=== PATIENT | male | born 1980 | race Caucasian/White ===

== ENCOUNTER 2022-10-30 13:30 | Day surgery (SDC) | payer MEDICARE, MEDICAID, SELFPAY ==
[2022-10-30] VITALS (11 sets, daily range): BP systolic 124–149; BP diastolic 76–93; PULSE 56–68; RESP 13–19; TEMP 36.3–37; O2SAT 97–100
--- NOTE | 2022-10-30 14:03 | CRLHL7_ITS ---
For Patients: As a result of the Century Cures Act, medical imaging exams and procedure reports are released immediately into your electronic medical record. You may view this report before your referring provider. If you have questions, please contact your health care provider. INDICATION: Abdominal pain, rectal bleeding on and off x 1 month[address] TECHNIQUE: CT of the abdomen and pelvis with 74 cc Isovue 370 IV contrast. Coronal and sagittal reconstructions. COMPARISON: CT of the abdomen and pelvis 10/18/2018. FINDINGS: The liver, gallbladder, spleen, pancreas, and adrenal glands are negative. Splenule. No biliary dilation. Portal veins are patent. Symmetric enhancement of the kidneys. No hydronephrosis or ureteral dilation. No obstructing urinary calculi identified. The bladder is normal in appearance. Mildly enlarged prostate gland. No small bowel dilation. Mild to moderate amount of stool throughout the colon. The appendix is dilated and fluid-filled measuring up to 10 mm in diameter (series 2, image 110). No significant wall thickening or surrounding fat stranding. Findings may represent early/mild acute appendicitis. No intraperitoneal free air or fluid. No evidence of abscess. No lymphadenopathy. Mild vascular calcifications. Tiny fat containing umbilical hernia. Degenerative changes at L5-S1. The lung bases are clear. IMPRESSION: 1. Dilated fluid-filled appendix without surrounding inflammation. Findings may represent early/mild acute appendicitis. No evidence of perforation or abscess. 2. No other acute findings in the abdomen or pelvis. No findings to explain rectal bleeding. Please note that all CT scans at this facility use dose modulation, iterative reconstruction, and/or weight-based dosing when appropriate to reduce radiation dose to as low as reasonably achievable. Dictated by Sena Murphy MD @ 10/30/2022 3:20:36 PM (Electronically Signed)
--- NOTE | 2022-10-30 14:05 | ED_ITS ---
HPI - Abdominal Pain General Chief Complaint: Abdominal Pain Stated Complaint: Abdominal pain, rectal bleeding Time Seen by Provider: 10/30/22 13:42 History of Present Illness HPI narrative: This 42-year-old male comes in with rectal bleeding from hemorrhoids which she has had repeatedly in the past. He also has severe abdominal pain recently. 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 He does report some nausea and states that he has not been able to take any food for the past few days. He is under house arrest. Related Data Home Medications Medication Instructions Recorded Confirmed meloxicam 15 mg tablet 15 mg PO DAILY PRN pain 10/30/22 10/30/22 Allergies Allergy/AdvReac Type Severity Reaction Status Date / Time No Known Drug Allergies Allergy Verified 10/30/22 14:48 Review of Systems Status of ROS Reports: 10 or more systems reviewed and unremarkable except as noted in History and below Narrative Constitutional: No fevers, no weight gain or loss. Eyes: No discharge. No vision changes. HENT: No congestion, no sore throat, no ear pain. Cardiovascular: No chest pain, no palpitations. Respiratory: No shortness of breath, no wheezes, no cough. Gastrointestinal: Abdominal pain and nausea. Bright red blood per rectum. Genitourinary: No dysuria, no hematuria. Musculoskeletal: Normal range of motion. Skin: No rashes, no pruritis. Neurological: No dizziness, weakness, sensory change, speech change. Endo/Heme/Allergies: No bruising or bleeding. No polydipsia. Pysch: no suicidality, no anxiety, no insomnia. All other systems reviewed and are negative. [facility] Social History Smoking Status: Current every day smoker What tobacco products do you use: cigarettes Do you use any of these nicotine containing products: None Second hand tobacco smoke exposure: No How often do you have a drink containing alcohol: never AUDIT-C Alcohol total score: 0 Non-prescribed substance use: marijuana (any form) Exam Narrative: Exam Narrative: Constitutional: Well-developed, well-nourished, no acute distress. HEENT: Normocephalic, atraumatic. Neck: Normal range of motion. Nontender. Supple. Heart: Regular. No murmurs. Normal rate. Intact distal pulses. Lungs: Clear to auscultation. No chest discomfort. No wheezes, rhonchi, or rales. Abdomen: Normal bowel sounds. Diffuse tenderness mostly in the lower abdomen. No rebound tenderness. Genitalia: Deferred. Back: No midline tenderness. Normal range of motion. Extremities: Normal range of motion. No injury. Skin: Intact. No rash. Warm. No erythema or pallor. Neurologic: No altered sensation. No weakness. Alert and oriented. Psychiatric: No suicidality. No anxiety or depression. No insomnia. Nursing notes and vitals signs are reviewed. Const: Vital Signs, click to edit/add: Vital Signs - 24 hr 10/30/22 13:43 10/30/22 16:04 Temperature 97.9 F Pulse Rate 68 Pulse Rate [Right Pulse Oximeter] 60 Respiratory Rate 18 16 Blood Pressure 132/83 Blood Pressure [Ri ght Upper Arm] 124/84 Pulse Oximetry 99 97 Oxygen Delivery Me thod Room Air Course Vital Signs Vital signs: Initial Vital Signs Temperature 97.9 F 10/30/22 13:43 Temperature Source Temporal Artery Scan 10/30/22 13:43 Pulse Rate 60 10/30/22 13:43 Pulse Rhythm Regular 10/30/22 13:43 Pulse Strength 3+ Normal 10/30/22 13:43 Respiratory Rate 18 10/30/22 13:43 Blood Pressure 124/84 10/30/22 13:43 Blood Pressure Mean 97 10/30/22 13:43 Blood Pressure Position Sitting 10/30/22 13:43 Pulse Oximetry 99 10/30/22 13:43 Oxygen Delivery Method Room Air 10/30/22 13:43 Vital Signs Temperature 97.9 F 10/30/22 13:43 Pulse Rate 60 10/30/22 13:43 Respiratory Rate 18 10/30/22 13:43 Blood Pressure 124/84 10/30/22 13:43 Pulse Oximetry 99 10/30/22 13:43 Oxygen Delivery Method Room Air 10/30/22 13:43 Temperature 97.9 F 10/30/22 13:43 Pulse Rate 68 10/30/22 16:04 Respiratory Rate 16 10/30/22 16:04 Blood Pressure 132/83 10/30/22 16:04 Pulse Oximetry 97 10/30/22 16:04 Oxygen Delivery Method Room Air 10/30/22 13:43 MDM - Abdominal Pain MDM Narrative Medical decision making narrative: This patient comes in reporting severe lower abdominal pain. He has recurrent rectal bleeding that he attributes to hemorrhoids. His reason for visit today is primarily the abdominal pain. He does have follow-up appointment regarding the hemorrhoids. An IV was established and labs are acquired. These returned normal. CT imaging of the abdomen and pelvis however does show suspicion of early to mild appendicitis. I did speak with the surgeon on-call who will arrange for appendectomy today. Lab Data Labs: Lab Results 10/30/22 Range/Units 14:30 WBC 7.41 (4.50-11.00) K/uL RBC 4.81 (4.30-5.90) m/uL Hgb 13.4 L (13.5-17.5) gm/dL Hct 40.9 (37.0-53.0) % MCV 85 (80-100) fL MCH 28 (26-34) pg MCHC 33 (32-36) gm/dL RDW Coeff of Anurag 13.2 (11.5-15.5) % Plt Count 298 (140-440) K/uL Neut % (Auto) 60.2 (42.0-72.0) % Lymph % (Auto) 29.6 (20-44) % Donley % (Auto) 8.1 (0.0-11.0) % Eos % (Auto) 1.6 (0.0-7.0) % Baso % (Auto) 0.4 (0.0-3.0) % Neut # (Auto) 4.46 (1.7-7.0) K/uL Lymph # (Auto) 2.19 (0.90-2.90) K/uL Donley # (Auto) 0.60 (0.00-0.90) K/UL Eos # (Auto) 0.12 (0.00-0.50) K/uL Baso # (Auto) 0.03 (0.00-0.30) K/uL Sodium 137 (135-149) mmol/L Potassium 3.7 (3.6-5.1) mmol/L Chloride 102 (96-114) mmol/L Carbon Dioxide 26 (20-32) mmol/L BUN 10 (5-24) mg/dL Creatinine 0.7 (0.5-1.5) mg/dL Estimated GFR 119 ml/min Glucose 116 H (60-115) mg/dL Calcium 9.1 (8.4-10.6) mg/dL Total Bilirubin 0.5 (0.1-1.5) mg/dL Direct Bilirubin 0.2 (0.0-0.5) mg/dL AST 35 (12-35) U/L ALT 16 (4-50) U/L Alkaline Phosphatase 80 (40-150) U/L Total Protein 7.3 (6.0-8.3) g/dL Albumin 4.7 (3.3-5.0) g/dL Lipase 61 (23-300) U/L Imaging Data CT scan - abdomen: Radiologist's impression: 1. Dilated fluid-filled appendix without surrounding inflammation. Findings may represent early/mild acute appendicitis. No evidence of perforation or abscess. 2. No other acute findings in the abdomen or pelvis. No findings to explain rectal bleeding. Discharge Plan Discharge Clinical Impression: Acute appendicitis Patient Disposition: XFER to OR Prescriptions: No Action meloxicam 15 mg tablet 15 mg PO DAILY PRN (Reason: pain) Follow Up/Referrals: Bruce Torres MD [Primary Care Provider] -
[2022-10-30] MEDS: KETOROLAC 30 MG/ML inj IVP (14:39)
[2022-10-30] MEDS: ONDANSETRON 2 MG/ML inj 4 MG IVP (14:39)
[2022-10-30 14:47] LABS: Basophils Absolute Auto 0.03 K/uL (0.00-0.30); Basophils Percent Auto 0.4 % (0.0-3.0); Eosinophils Absolute Auto 0.12 K/uL (0.00-0.50); Eosinophils Percent Auto 1.6 % (0.0-7.0); Hematocrit 40.9 % (37.0-53.0); Hemoglobin* 13.4 gm/dL (13.5-17.5); Immature Granulocytes Abs Auto 0.01 K/uL (0.00-0.30); Immature Granulocytes Pct Auto 0.1 %; Lymphocytes Absolute Auto 2.19 K/uL (0.90-2.90); Lymphocytes Percent Auto 29.6 % (20-44); Mean Corpuscular HGB Conc 33 gm/dL (32-36); Mean Corpuscular Hemoglobin 28 pg (26-34); Mean Corpuscular Volume 85 fL (80-100); Monocytes Percent Auto 8.1 % (0.0-11.0); Neutrophils Absolute Auto 4.46 K/uL (1.7-7.0); Neutrophils Percent Auto 60.2 % (42.0-72.0); Platelet Count* 298 K/uL (140-440); RDW Coefficient of Variation % 13.2 % (11.5-15.5); Red Blood Count 4.81 m/uL (4.30-5.90); White Blood Count* 7.41 K/uL (4.50-11.00)
[2022-10-30] MEDS: 0.9 % SODIUM CHLORIDE 1000 ml 1,000 ML IV (14:54)
[2022-10-30 14:55] LABS: Slide Review Reflex No
[2022-10-30 15:02] LABS: Albumin* 4.7 g/dL (3.3-5.0)
[2022-10-30 15:03] LABS: Chloride* 102 mmol/L (96-114); Potassium* 3.7 mmol/L (3.6-5.1); Sodium* 137 mmol/L (135-149)
[2022-10-30 15:05] LABS: Bilirubin Direct* 0.2 mg/dL (0.0-0.5); Bilirubin Total* 0.5 mg/dL (0.1-1.5); Carbon Dioxide* 26 mmol/L (20-32); Creatinine* 0.7 mg/dL (0.5-1.5); Estimated Glomerular Filt Rate 119 ml/min; Total Protein* 7.3 g/dL (6.0-8.3)
[2022-10-30 15:06] LABS: Alanine Aminotransferase* 16 U/L (4-50); Alkaline Phosphatase* 80 U/L (40-150); Blood Urea Nitrogen* 10 mg/dL (5-24); Calcium* 9.1 mg/dL (8.4-10.6); Glucose* 116 mg/dL (60-115); Lipase* 61 U/L (23-300)
[2022-10-30 15:31] LABS: Aspartate Amino Transferase* 35 U/L (12-35)
--- NOTE | 2022-10-30 15:46 | ED.NURSE ---
Patient pressed call light to report that pain was becoming more severe in lower right quadrant.
[2022-10-30] MEDS: HYDROmorphone 0.5 mg/0.5 ml inj IVP ×2 (15:54→16:55)
--- NOTE | 2022-10-30 18:30 | P.GSHP_ITS ---
History of Present Illness History of Present Illness Date Seen: 10/30/22 Chief complaint: Abdominal pain, rectal bleeding Narrative: Omid Sun is a 42 year old male presented to the emergency department with complaints of abdominal pain and rectal bleeding. He has had on and off bleeding with bowel movements, which she reports is secondary to hemorrhoids. He also reports having some pain in his lower abdomen just prior to a bowel movement. This morning the pain was different than it had been previously in very intense. It was focused in the lower quadrants, with him pointing to the right lower quadrant as being the worst area of her pain. He does report a decrease in appetite. He last ate around 7:30 a.m. Some associated nausea and vomiting this morning. No reported fevers at home. He has never had abdominal surgery before, denies any problems with anesthesia, bleeding or blood clots. Patient is deaf and interview was performed with an home support worker Review of Systems Status of ROS: Reports: 10 or more systems reviewed and unremarkable except as noted in History and below [facility] Social History Smoking Status: Current every day smoker What tobacco products do you use: cigarettes Do you use any of these nicotine containing products: None Second hand tobacco smoke exposure: No How often do you have a drink containing alcohol: never AUDIT-C Alcohol total score: 0 Non-prescribed substance use: marijuana (any form) Meds Home Medications and Allergies Home Medications Medication Instructions Recorded Confirmed Type meloxicam 15 mg tablet 15 mg PO DAILY PRN pain 10/30/22 10/30/22 History Allergies Allergy/AdvReac Type Severity Reaction Status Date / Time No Known Drug Allergies Allergy Verified 10/30/22 14:48 Exam Narrative: Exam Narrative: General: Alert and oriented, no acute distress Respiratory: Equal breath rise bilaterally, maintained on room air CV: Regular rhythm rate, well perfused Abdomen: Soft, mild lower abdominal tenderness with no guarding or rebound. Const: Vital Signs, click to edit/add: Vital Signs - 24 hr 10/30/22 13:43 10/30/22 16:04 Temperature 97.9 F Pulse Rate 68 Pulse Rate [Right Pulse Oximeter] 60 Respiratory Rate 18 16 Blood Pressure 132/83 Blood Pressure [Ri ght Upper Arm] 124/84 Pulse Oximetry 99 97 Oxygen Delivery Me thod Room Air Results Results Labs: No evidence of leukocytosis in all labs within normal limits. Abdomen CT scan report/results: report reviewed and image reviewed Assessment and Plan Assessment and plan (1) Acute appendicitis: Status: Acute Plan The patient presented with a history, exam and imaging findings suggestive of acute appendicitis. I discussed the treatment options with the patient including non-surgical and surgical options. Given the patient's CT scan findings, as well as clinical history, I recommended laparoscopic appendectomy. The risks of surgery were reviewed with the patient including the risks of bleeding, post-operative wound or intra-abdominal infection, injury to abdominal structures and possible conversion to an open operation. We also discussed anesthetic complications including LA, stroke, respiratory failure and blood clots. The patient voiced an understanding of our conversation, had the opportunity to ask questions, agreed to accept the risks of surgery and asked that we proceed with surgery. -OR for laparoscopic appendectomy
[2022-10-30] MEDS: LACTATED RINGERS 1000 ML 1,000 ML 100 ML IV (18:57)
[2022-10-30] MEDS: PIPERACILLIN/TAZOBACTAM 3.375 GM in 0.9 % SODIUM CHLORIDE Mini-bag 100 ML IVPB (19:06)
[2022-10-30] MEDS: BUPIVACAINE 0.25% 30 ML INJECTION (19:45)
--- NOTE | 2022-10-30 19:58 | PM.GSPRC ---
Operative Note Date of procedure: 10/30/22 Pre-op diagnosis: Acute appendicitis Post-op diagnosis: Same, non perforated Type of Procedure: Laparoscopic appendectomy Indications: Patient is a 42-year-old male who presented to the emergency department with clinical history and workup consistent with acute appendicitis. CT scan confirmed findings of early, non perforated appendicitis. Risks and benefits of operative intervention were discussed at length with the patient. Risks included but was not limited to: Bleeding, infection, risk of damage to surrounding structures, possible need for additional procedures, possible need to convert to an open operation and postoperative complications such as pneumonia, pulmonary emboli or HI. All questions and concerns were addressed with the patient agreeing to proceed. Procedure Description: After discussing the risks and benefits of the procedure, the patient signed informed consent.? The operative site was marked and the patient was brought to the operating room and placed on the operating table in supine position.? Care was taken to pad the patient's pressure points.?? The patient was then intubated by anesthesia.?? The operative site was then prepped and draped in the usual sterile fashion.? A time-out was then performed. Entrance to the abdomen was obtained via a 5 mm optical trocar in the left upper quadrant. The abdomen was insufflated and briefly surveyed for any signs of injury. There were none. A 12 mm port was placed at the umbilicus as well as a 5 mm port in the left lower quadrant under direct vision. The patient was then placed in Trendelenburg position with the right side up. The small bowel was gently moved out of the way and the appendix was in view. This was dilated at the tip and midbody, grasped and pulled into view. There was no evidence of perforation. A mesenteric window was created between the base of the appendix and the mesoappendix. A 45 mm Endo-MORGAN purple load stapler was then used to transect the appendix at its base. Two 30 mm vascular load stapler was then used to take the mesoappendix. The staple lines were inspected for bleeding. There was several areas of pinpoint arterial bleeding. This was controlled with 5 mm clips. All blood clots and fluid was suctioned from the abdomen. The area was then inspected for hemostasis, which was excellent. The appendix was then removed from the abdomen using an Endo-Catch bag. The specimen was sent to pathology. The 12 mm port site fascia was closed with 0 Vicryl. All other ports were removed under direct visualization. The skin was then closed with absorbable subcuticular suture. Sterile dressings were then applied. Instrument sponge and needle counts were correct at the end of the case. The patient was then woken and transported to the PACU in stable condition. Findings: Acute, non perforated appendicitis Anesthesia: IRISA Surgeon: Kandice Dan MD Estimated blood loss (mL): 15 Specimen: Appendix Condition: stable Disposition: PACU
--- NOTE | 2022-10-30 20:08 | W.ANESCHARGE ---
Anesthesia Charges Start Date/Time Anesthesia Start Date: 10/30/22 Anesthesia Start Time: 18:56 Stop Date/Time Anesthesia Stop Date: 10/30/22 Anesthesia Stop Time: 20:06 Summary Emergency: [employer]
[2022-10-30] MEDS: ACETAMINOPHEN 325 MG TABLET 650 MG PO (21:31)
[2022-10-30] MEDS: OXYCODONE 5 MG TABLET PO (21:32)
[2022-10-30] MEDS: KETOROLAC 15 MG/ML inj IVP (21:33)
[2022-10-30] MEDS: LACTATED RINGERS 1000 ML 1,000 ML 125 ML IV (22:45)
[2022-10-31] MEDS: OXYCODONE 5 MG TABLET PO ×3 (01:14→10:07)
[2022-10-31] MEDS: ACETAMINOPHEN 325 MG TABLET 650 MG PO ×2 (01:14→05:55)
[2022-10-31] MEDS: LACTATED RINGERS 1000 ML 1,000 ML 125 ML IV (03:00)
[2022-10-31] MEDS: KETOROLAC 15 MG/ML inj IVP (04:22)
[2022-10-31 06:00] VITALS: RESP 16; TEMP 36.8; O2SAT 98
--- NOTE | 2022-10-31 07:38 | PC.NURSE ---
Shift Summary? [address] Appendectomy M/S recovery (ASL)? Pt did well overnight. Waiting on his ride and can DC anytime. Pain managed well overnight with oxy 5-10mg, Tylenol, and ketorolac. Deaf with some ability to hear with hearing aids. Communicates well with lip reading, bilingual interpreter in person, notes, and expo board. Instructional video for IS given to pt. Independent in the room to void in BR. Good intake and output, IVFs DCed. On room air. 3 Lap sites CDI, icepack in place. On regular diet, no nausea/vomiting. On house arrest, has ankle bracelet.?
[2022-10-31 08:30] VITALS: BP 100/68; RESP 18; TEMP 36.7; O2SAT 96
--- NOTE | 2022-10-31 12:07 | PC.NURSE ---
Went through patient discharge instructions with the [facility] in person cattle knocker Halle. Went through his activity, diet, incision care, follow up and medications. Patient had his IV removed and no further questions were noted. Patient then ambulated to meet his ride.
--- NOTE | 2022-10-31 14:00 | PC.NURSE ---
shift note: vss stable. pt afeb. lap site x3 c/d/i. pt medicated for unrated RUQ pain with relief. pt passing flatus. pt up indept in sore[place] with steady gait. Traci Galvez RN reviewed dc instructions and dc'd IV prior to pt dc with used building materials yard worker present. Belongings and copies of dc sent with pt.
== END 2022-10-31 12:45 | disposition home or self-care (01) ==
LOC: ED 18:03 → SS 18:22 → MEDSURG 21:21
PROVIDERS: Emergency Provider Emergency Medicine Emergency Medical Services; PCP Family Medicine; Visit Provider Surgery
PROC: 0DTJ4ZZ Resection of Appendix, Percutaneous Endoscopic Approach (ICD-10-PCS; CPT 44970; principal; 2022-10-30 19:00)
DX: K35.80 Unspecified acute appendicitis (principal)
CPT/HCPCS: 44970; 00840; 36415; 74177; 80048; 80076; 83690; 85025; 88304; 99140; 99285; A9270; J0330; J1100; J1170; J1885; J2250; J2405; J2543; J2704; J2710; J3010; J3490; J7030; J7120; Q9967

== ENCOUNTER 2022-11-03 20:34 | Emergency (ER) | payer MEDICARE, MEDICAID, SELFPAY ==
[2022-11-03 20:53] VITALS: BP 139/95; PULSE 60; RESP 16; TEMP 36.7; O2SAT 98
--- NOTE | 2022-11-03 21:07 | ED.ABDPAIN ---
HPI - Abdominal Pain General Chief Complaint: Post Op Complication Stated Complaint: Post Surgical Complications Time Seen by Provider: 11/03/22 20:59 History of Present Illness HPI narrative: Patient is a 42-year-old gentleman who underwent a appendectomy 4 days ago who presents with abdominal pain localized to the right lower quadrant as well as inability to pass stools. Patient is unable to keep any food down as he has refractory nausea and vomiting. He has had no fevers no chills no night sweats no dysuria no cough no shortness of breath. Patient is concerned he is having a postoperative complication. No other complaints or concerns have been noted patient has otherwise been in reasonable health over the years is clear no chronic medical issues to speak of. Patient is hard of hearing any seen with the director of hotel operations. Related Data Home Medications Medication Instructions Recorded Confirmed meloxicam 15 mg tablet 15 mg PO DAILY PRN pain 10/30/22 10/30/22 Previous Rx's Medication Instructions Recorded oxycodone 5 mg tablet 5 mg PO Q6H PRN pain #20 tabs 10/30/22 sennosides 8.6 mg capsule (senna) 8.6 mg PO DAILY PRN constipation 10/30/22 #90 caps Allergies Allergy/AdvReac Type Severity Reaction Status Date / Time No Known Drug Allergies Allergy Verified 10/30/22 14:48 Review of Systems Status of ROS Reports: 10 or more systems reviewed and unremarkable except as noted in History and below [facility] Surgical History (Updated 11/03/22 @ 21:10 by Sukh Raines MD) Hx of appendectomy ?Z90.49 - Acquired absence of other specified parts of digestive tract (ICD-10) Social History Smoking Status: Current every day smoker What tobacco products do you use: cigarettes Do you use any of these nicotine containing products: None Second hand tobacco smoke exposure: No How often do you have a drink containing alcohol: never AUDIT-C Alcohol total score: 0 Non-prescribed substance use: marijuana (any form) Exam Narrative: Exam Narrative: EXAM GENERAL: Patient appears comfortable and well. EYES: No scleral icterus. ENT: Tympanic membranes and oropharynx normal. THYROID: no thyroid nodules or thyromegaly. LYMPH: No supraclavicular or cervical lymphadenopathy. SKIN: Visible skin seen during exam normal or with benign process only. EXT: No dependent lower extremity pedal edema. HEART: Regular rate and rhythm with no murmurs, rubs, or gallops. LUNGS: Clear to auscultation bilaterally with no crackles or wheezes. ABD: Hypoactive bowel sounds mildly tender to palpation. Wounds appear to be clean and dry. PSYCH: Good eye contact, speech is not pressured. Const: Vital Signs, click to edit/add: Vital Signs - 24 hr 11/03/22 20:53 Temperature 98.0 F Pulse Rate [Right Pulse Oximeter] 60 Respiratory Rate 16 Blood Pressure [Le ft Upper Arm] 139/95 H Pulse Oximetry 98 Oxygen Delivery Me thod Room Air Course Course Hospital Course: Patient seen examined CBC CMP amylase UA CT abdomen pelvis ordered. 1 L normal saline given IV. Vital Signs Vital signs: Initial Vital Signs Temperature 98.0 F 11/03/22 20:53 Temperature Source Temporal Artery Scan 11/03/22 20:53 Pulse Rate 60 11/03/22 20:53 Pulse Rhythm Regular 11/03/22 20:53 Respiratory Rate 16 11/03/22 20:53 Blood Pressure 139/95 H 11/03/22 20:53 Blood Pressure Mean 109 H 11/03/22 20:53 Blood Pressure Position Semi-Fowlers 11/03/22 20:53 Pulse Oximetry 98 11/03/22 20:53 Oxygen Delivery Method Room Air 11/03/22 20:53 Vital Signs Temperature 98.0 F 11/03/22 20:53 Pulse Rate 60 11/03/22 20:53 Respiratory Rate 16 11/03/22 20:53 Blood Pressure 139/95 H 11/03/22 20:53 Pulse Oximetry 98 11/03/22 20:53 Oxygen Delivery Method Room Air 11/03/22 20:53 Temperature 98.0 F 11/03/22 20:53 Pulse Rate 60 11/03/22 20:53 Respiratory Rate 16 11/03/22 20:53 Blood Pressure 139/95 H 11/03/22 20:53 Pulse Oximetry 98 11/03/22 20:53 Oxygen Delivery Method Room Air 11/03/22 20:53 MDM - Abdominal Pain MDM Narrative Medical decision making narrative: Patient is a 42-year-old gentleman who presents 4 days after appendectomy with abdominal pain. He has a largely unremarkable exam is wounds look fine. He has a normal CBC and electrolytes. He is unable to provide a urine sample. CT of the abdomen and pelvis is unremarkable. At this time I did treated with Zofran 0 DT advance his diet as tolerated and keep his outpatient follow-up appointments as directed. He will return if further problems develop. Lab Data Labs: Lab Results 11/03/22 Range/Units 21:25 WBC 5.76 (4.50-11.00) K/uL RBC 4.28 L (4.30-5.90) m/uL Hgb 12.2 L (13.5-17.5) gm/dL Hct 37.1 (37.0-53.0) % MCV 87 (80-100) fL MCH 29 (26-34) pg MCHC 33 (32-36) gm/dL RDW Coeff of Anurag 13.0 (11.5-15.5) % Plt Count 236 (140-440) K/uL Neut % (Auto) 73.1 H (42.0-72.0) % Lymph % (Auto) 17.7 L (20-44) % Pender % (Auto) 6.3 (0.0-11.0) % Eos % (Auto) 1.4 (0.0-7.0) % Baso % (Auto) 0.5 (0.0-3.0) % Neut # (Auto) 4.20 (1.7-7.0) K/uL Lymph # (Auto) 1.00 (0.90-2.90) K/uL Pender # (Auto) 0.40 (0.00-0.90) K/UL Eos # (Auto) 0.08 (0.00-0.50) K/uL Baso # (Auto) 0.03 (0.00-0.30) K/uL Sodium 138 (135-149) mmol/L Potassium 3.8 (3.6-5.1) mmol/L Chloride 103 (96-114) mmol/L Carbon Dioxide 27 (20-32) mmol/L BUN 11 (5-24) mg/dL Creatinine 0.6 (0.5-1.5) mg/dL Estimated GFR 124 ml/min Glucose 140 H (60-115) mg/dL Lactate 1.1 (0.5-1.9) mmol/L Calcium 9.1 (8.4-10.6) mg/dL Total Bilirubin 0.4 (0.1-1.5) mg/dL AST 19 (12-35) U/L ALT 15 (4-50) U/L Alkaline Phosphatase 64 (40-150) U/L Total Protein 6.7 (6.0-8.3) g/dL Albumin 4.3 (3.3-5.0) g/dL Amylase 49 (18-89) U/L Discharge Plan Discharge Clinical Impression: Post-operative pain Patient Disposition: Home, Self-Care Condition: Stable Additional Instructions: Advanced diet activity as tolerated Zofran as needed Keep outpatient follow-up appointments. Activity Level: No Restrictions Discharge Diet: Regular Prescriptions: No Action meloxicam 15 mg tablet 15 mg PO DAILY PRN (Reason: pain) oxycodone 5 mg tablet 5 mg PO Q6H PRN (Reason: pain) Qty: 20 0RF senna 8.6 mg capsule 8.6 mg PO DAILY PRN (Reason: constipation) Qty: 90 0RF Follow Up/Referrals: Bruce Torres MD [Primary Care Provider] - Stand Alone Forms: [employer] Info Instructions
--- NOTE | 2022-11-03 21:11 | CRLHL7_ITS ---
For Patients: As a result of the Century Cures Act, medical imaging exams and procedure reports are released immediately into your electronic medical record. You may view this report before your referring provider. If you have questions, please contact your health care provider. INDICATION: Abdominal pain. History of hemorrhoid surgery and appendectomy. COMPARISON: CT of the abdomen and pelvis with contrast from 10/30/2022. TECHNIQUE: CT examination of the abdomen and pelvis was performed with the uneventful intravenous administration of 83 cc of Isovue 370 for a while 3 mm thick axial sections were obtained from the lung bases through the pubic symphysis. Oral contrast was not administered. Please note that all CT scans at this facility use dose modulation, iterative reconstruction, and/or weight-based dosing when appropriate to reduce radiation dose to as low as reasonably achievable. FINDINGS: In the abdomen, the liver, spleen, pancreas, and adrenals are normal in appearance. The kidneys are normal in appearance. The gallbladder is normal in appearance. The abdominal aorta is normal in caliber with no sign of dilatation. There is no sign of retroperitoneal mass or adenopathy. The stomach, loops of small bowel, and colon in the abdomen are normal in appearance. During the interval, the previously seen dilated appendix has been removed, with new surgical dat at the base of the appendix. There is no sign of any fluid collection or inflammatory process in this region suggest residual infection. The loops of small bowel, colon, and rectum in the pelvis are normal in appearance. The prostate is normal in appearance. The urinary bladder is normal in appearance. There is no sign of pelvic or inguinal mass or adenopathy. There is no sign of free air or free fluid in the abdomen or pelvis. The lung bases are clear. There is stable mild scoliosis of the upper lumbar spine convex towards the right. Again seen is minimal posterior subluxation of L5 on S1 with stable severe L5-S1 disc degenerative disease. There is stable moderate right foraminal stenosis from posterior osteophyte formation, probably mildly compressing the right L5 nerve root. No sign of foraminal stenosis on the left. IMPRESSION: Nothing seen to correlate with a history of abdominal pain. New findings of appendectomy with no sign of any fluid or inflammatory process in the area of appendectomy. No sign of bowel distention or inflammatory process involving the bowel. Normal CT of the abdomen with contrast CT of the pelvis shows no additional abnormality aside from new changes of appendectomy. Probable compression of the right L5 nerve root in the moderately narrowed right L5-S1 neural foramen. Please note that all CT scans at this facility use dose modulation, iterative reconstruction, and/or weight-based dosing when appropriate to reduce radiation dose to as low as reasonably achievable. Dictated by Rudy Enrique MD @ 11/03/2022 10:10:48 PM (Electronically Signed)
[2022-11-03] MEDS: 0.9 % SODIUM CHLORIDE 1000 ml 1,000 ML IV (21:30)
[2022-11-03 21:35] LABS: Lactate* 1.1 mmol/L (0.5-1.9)
[2022-11-03 21:38] LABS: Basophils Absolute Auto 0.03 K/uL (0.00-0.30); Basophils Percent Auto 0.5 % (0.0-3.0); Eosinophils Absolute Auto 0.08 K/uL (0.00-0.50); Eosinophils Percent Auto 1.4 % (0.0-7.0); Hematocrit 37.1 % (37.0-53.0); Hemoglobin* 12.2 gm/dL (13.5-17.5); Immature Granulocytes Abs Auto 0.06 K/uL (0.00-0.30); Lymphocytes Percent Auto 17.7 % (20-44); Mean Corpuscular HGB Conc 33 gm/dL (32-36); Mean Corpuscular Hemoglobin 29 pg (26-34); Mean Corpuscular Volume 87 fL (80-100); Monocytes Percent Auto 6.3 % (0.0-11.0); Neutrophils Percent Auto 73.1 % (42.0-72.0); Platelet Count* 236 K/uL (140-440); Red Blood Count 4.28 m/uL (4.30-5.90); White Blood Count* 5.76 K/uL (4.50-11.00)
[2022-11-03 21:42] LABS: Slide Review Reflex No
[2022-11-03 21:51] LABS: Albumin* 4.3 g/dL (3.3-5.0); Chloride* 103 mmol/L (96-114)
[2022-11-03 21:52] LABS: Potassium* 3.8 mmol/L (3.6-5.1); Sodium* 138 mmol/L (135-149)
[2022-11-03 21:54] LABS: Amylase* 49 U/L (18-89); Aspartate Amino Transferase* 19 U/L (12-35); Bilirubin Total* 0.4 mg/dL (0.1-1.5); Blood Urea Nitrogen* 11 mg/dL (5-24); Carbon Dioxide* 27 mmol/L (20-32); Creatinine* 0.6 mg/dL (0.5-1.5); Estimated Glomerular Filt Rate 124 ml/min; Total Protein* 6.7 g/dL (6.0-8.3)
[2022-11-03 21:55] LABS: Alanine Aminotransferase* 15 U/L (4-50); Alkaline Phosphatase* 64 U/L (40-150); Calcium* 9.1 mg/dL (8.4-10.6); Glucose* 140 mg/dL (60-115)
== END 2022-11-03 23:22 | disposition home or self-care (01) ==
PROVIDERS: Emergency Provider Internal Medicine; PCP Family Medicine
DX: G89.18 Other acute postprocedural pain (principal); R10.9 Unspecified abdominal pain
CPT/HCPCS: 36415; 74177; 80053; 81003; 82150; 83605; 85025; 96360; 99283; 99284; 99285; J7030; Q9967

== ENCOUNTER 2022-12-12 12:43 | Emergency (ER) | payer MEDICARE, MEDICAID, SELFPAY ==
[2022-12-12 13:02] VITALS: BP 110/74; PULSE 81; RESP 16; TEMP 36.7; O2SAT 97; BMI 19.5
--- NOTE | 2022-12-12 13:58 | ED.GENADULT ---
HPI - General Adult General Chief complaint: Weakness Stated complaint: Weight lost post appendectomy Time Seen by Provider: 12/12/22 13:21 History of Present Illness HPI narrative: This 42-year-old male comes in reporting loss of appetite and weight loss. He did have appendicitis with appendectomy a couple weeks ago. Since then he states he does not have any interest in food. He did present to clinic where he had a CT scan and labs done a few days ago. These returned with reassuring findings. The patient arrives here with normal vital signs but states that he continues to have no interest in food. He does have some nausea related to taking food and has taken some Zofran without much relief. He is not nauseated when he is not eating something. 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 Related Data Home Medications Medication Instructions Recorded Confirmed meloxicam 15 mg tablet 15 mg PO DAILY PRN pain 10/30/22 10/30/22 Previous Rx's Medication Instructions Recorded oxycodone 5 mg tablet 5 mg PO Q6H PRN pain #20 tabs 10/30/22 sennosides 8.6 mg capsule (senna) 8.6 mg PO DAILY PRN constipation 10/30/22 #90 caps metoclopramide HCl 5 mg tablet 5 mg PO DAILY #20 tabs 12/12/22 (Reglan) pantoprazole 20 mg tablet,delayed 20 mg PO DAILY #20 tabs 12/12/22 release (Protonix) Allergies Allergy/AdvReac Type Severity Reaction Status Date / Time No Known Drug Allergies Allergy Verified 12/12/22 13:06 Review of Systems Status of ROS: Reports: 10 or more systems reviewed and unremarkable except as noted in History and below Narrative: Constitutional: No fevers, no weight gain or loss. Eyes: No discharge. No vision changes. HENT: No congestion, no sore throat, no ear pain. Cardiovascular: No chest pain, no palpitations. Respiratory: No shortness of breath, no wheezes, no cough. Gastrointestinal: No abdominal pain, no vomiting, no diarrhea. He reports nausea and loss of appetite. Genitourinary: No dysuria, no hematuria. Musculoskeletal: Normal range of motion. Skin: No rashes, no pruritis. Neurological: No dizziness, weakness, sensory change, speech change. Endo/Heme/Allergies: No bruising or bleeding. No polydipsia. Pysch: no suicidality, no anxiety, no insomnia. All other systems reviewed and are negative. [facility] Surgical History (Updated 11/03/22 @ 21:10 by Sukh Raines MD) Hx of appendectomy ?Z90.49 - Acquired absence of other specified parts of digestive tract (ICD-10) Social History Smoking Status: Current every day smoker What tobacco products do you use: cigarettes Do you use any of these nicotine containing products: None Second hand tobacco smoke exposure: No How often do you have a drink containing alcohol: never AUDIT-C Alcohol total score: 0 Non-prescribed substance use: marijuana (any form) Exam Narrative: Exam Narrative: Constitutional: No acute distress. Body mass index at 19.5 kilograms/meter squared. HEENT: Normocephalic, atraumatic. Neck: Normal range of motion. Nontender. Supple. Heart: Regular. No murmurs. Normal rate. Intact distal pulses. Lungs: Clear to auscultation. No chest discomfort. No wheezes, rhonchi, or rales. Abdomen: Normal bowel sounds. Nontender. No rebound tenderness. Genitalia: Deferred. Back: No midline tenderness. Normal range of motion. Extremities: Normal range of motion. No injury. Skin: Intact. No rash. Warm. No erythema or pallor. Neurologic: No altered sensation. No weakness. Alert and oriented. Psychiatric: No suicidality. No anxiety or depression. No insomnia. Nursing notes and vitals signs are reviewed. Const: Vital Signs, click to edit/add: Vital Signs - 24 hr 12/12/22 13:02 Temperature 98.0 F Pulse Rate [Right Pulse Oximeter] 81 Respiratory Rate 16 Blood Pressure [Ri ght Upper Arm] 110/74 Pulse Oximetry 97 Oxygen Delivery Me thod Room Air Course Vital Signs Vital signs: Initial Vital Signs Temperature 98.0 F 12/12/22 13:02 Temperature Source Temporal Artery Scan 12/12/22 13:02 Pulse Rate 81 12/12/22 13:02 Pulse Rhythm Regular 12/12/22 13:02 Pulse Strength 3+ Normal 12/12/22 13:02 Respiratory Rate 16 12/12/22 13:02 Blood Pressure 110/74 12/12/22 13:02 Blood Pressure Mean 86 06/20/23 13:02 Blood Pressure Position Standing 12/12/22 13:02 Pulse Oximetry 97 12/12/22 13:02 Oxygen Delivery Method Room Air 12/12/22 13:02 Vital Signs Temperature 98.0 F 12/12/22 13:02 Pulse Rate 81 12/12/22 13:02 Respiratory Rate 16 12/12/22 13:02 Blood Pressure 110/74 12/12/22 13:02 Pulse Oximetry 97 12/12/22 13:02 Oxygen Delivery Method Room Air 12/12/22 13:02 Temperature 98.0 F 12/12/22 13:02 Pulse Rate 81 12/12/22 13:02 Respiratory Rate 16 12/12/22 13:02 Blood Pressure 110/74 12/12/22 13:02 Pulse Oximetry 97 12/12/22 13:02 Oxygen Delivery Method Room Air 12/12/22 13:02 Medical Decision Making MDM Narrative Medical decision making narrative: This patient had a recent CT scan and labs workup and these results are reviewed. I discussed rechecking these but indicated that it may be redundant and is not necessary. He has not had his thyroid checked so labs were drawn. The patient prefers to leave before results are returned. He will be notified if any abnormalities return in these results. I did provide prescription for Reglan and Protonix in hopes that these medicines will help with his dyspepsia. Discharge Plan Discharge Clinical Impression: Dyspepsia Patient Disposition: Home, Self-Care Condition: Unchanged Additional Instructions: Take medications as needed and indicated. Increase diet as tolerated. Follow up with MD or return if worsening. Prescriptions: New pantoprazole [Protonix] 20 mg tablet,delayed release (DR/EC) 20 mg PO DAILY Qty: 20 2RF metoclopramide HCl [Reglan] 5 mg tablet 5 mg PO DAILY Qty: 20 0RF No Action meloxicam 15 mg tablet 15 mg PO DAILY PRN (Reason: pain) oxycodone 5 mg tablet 5 mg PO Q6H PRN (Reason: pain) Qty: 20 0RF senna 8.6 mg capsule 8.6 mg PO DAILY PRN (Reason: constipation) Qty: 90 0RF Follow Up/Referrals: Bruce Torres MD [Primary Care Provider] - Stand Alone Forms: [employer] Info Instructions
[2022-12-12 14:14] LABS: Basophils Absolute Auto 0.04 K/uL (0.00-0.30); Basophils Percent Auto 0.5 % (0.0-3.0); Eosinophils Absolute Auto 0.05 K/uL (0.00-0.50); Eosinophils Percent Auto 0.7 % (0.0-7.0); Hematocrit 41.1 % (37.0-53.0); Hemoglobin* 13.2 gm/dL (13.5-17.5); Immature Granulocytes Abs Auto 0.01 K/uL (0.00-0.30); Immature Granulocytes Pct Auto 0.1 %; Lymphocytes Absolute Auto 1.81 K/uL (0.90-2.90); Lymphocytes Percent Auto 24.6 % (20-44); Mean Corpuscular HGB Conc 32 gm/dL (32-36); Mean Corpuscular Hemoglobin 27 pg (26-34); Mean Corpuscular Volume 83 fL (80-100); Monocytes Percent Auto 6.8 % (0.0-11.0); Neutrophils Absolute Auto 4.95 K/uL (1.7-7.0); Neutrophils Percent Auto 67.3 % (42.0-72.0); Platelet Count* 288 K/uL (140-440); RDW Coefficient of Variation % 12.5 % (11.5-15.5); Red Blood Count 4.94 m/uL (4.30-5.90); White Blood Count* 7.36 K/uL (4.50-11.00)
[2022-12-12 14:15] LABS: Slide Review Reflex No
[2022-12-12 14:23] LABS: Chloride* 103 mmol/L (96-114); Potassium* 3.8 mmol/L (3.6-5.1); Sodium* 134 mmol/L (135-149)
[2022-12-12 14:26] LABS: Blood Urea Nitrogen* 13 mg/dL (5-24); Carbon Dioxide* 26 mmol/L (20-32); Creatinine* 0.7 mg/dL (0.5-1.5); Est. Creatinine Clearance* 135.43; Estimated Glomerular Filt Rate 119 ml/min; Glucose* 77 mg/dL (60-115)
[2022-12-12 14:27] LABS: Calcium* 9.3 mg/dL (8.4-10.6)
[2022-12-12 15:03] LABS: Erythrocyte SedimentationRate* 5 mm/hr (2-15)
== END 2022-12-12 14:15 | disposition home or self-care (01) ==
PROVIDERS: Emergency Provider Emergency Medicine Emergency Medical Services; PCP Family Medicine
DX: R10.13 Epigastric pain (principal)
CPT/HCPCS: 36415; 80048; 84443; 85025; 85651; 99283; 99284

== ENCOUNTER 2023-05-21 23:21 | Emergency (ER) | payer MEDICAID, SELFPAY ==
[2023-05-21 23:43] VITALS: BP 120/70; PULSE 76; RESP 18; TEMP 36.9; O2SAT 99; BMI 20.3
--- NOTE | 2023-05-22 00:12 | ED_ITS ---
HPI - General Adult General Date Seen: 05/22/23 Chief complaint: Skin/Abscess/Foreign Body Stated complaint: Lower right abdomen-Pain feels like sting. Time Seen by Provider: 05/21/23 23:53 Source: patient, EMS, RN notes reviewed and credit compliance officer (ASL) Mode of arrival: EMS Limitations: no limitations History of Present Illness HPI narrative: Omid is a 43-year-old male coming in via ambulance with a spot on his left lower abdominal wall that is red in tender. It sounds as if a similar episode happened and went away. He denies any fevers. There is no trauma. He has seen with the assistance of the casino floorperson. He did have appendicitis and appendectomy here earlier this year. He denies any history of MRSA, is not aware of what this is. Related Data Home Medications Medication Instructions Recorded Confirmed meloxicam 15 mg tablet 15 mg PO DAILY PRN pain 10/30/22 10/30/22 Previous Rx's Medication Instructions Recorded oxycodone 5 mg tablet 5 mg PO Q6H PRN pain #20 tabs 10/30/22 sennosides 8.6 mg capsule (senna) 8.6 mg PO DAILY PRN constipation 10/30/22 #90 caps metoclopramide HCl 5 mg tablet 5 mg PO DAILY #20 tabs 12/12/22 (Reglan) pantoprazole 20 mg tablet,delayed 20 mg PO DAILY #20 tabs 12/12/22 release (Protonix) doxycycline monohydrate 100 mg 100 mg PO BID #13 tabs 05/22/23 tablet Allergies Allergy/AdvReac Type Severity Reaction Status Date / Time No Known Drug Allergies Allergy Verified 12/12/22 13:06 Review of Systems Narrative: As per HPI. PFSH PFSH Surgical History Hx of appendectomy ?Z90.49 - Acquired absence of other specified parts of digestive tract (ICD- 10) Social History Smoking Status: Current every day smoker What tobacco products do you use: cigarettes Do you use any of these nicotine containing products: None Second hand tobacco smoke exposure: No How often do you have a drink containing alcohol: never AUDIT-C Alcohol total score: 0 Non-prescribed substance use: marijuana (any form) Exam Const: Vital Signs, click to edit/add: Vital Signs - 24 hr 05/21/23 23:43 Temperature 98.4 F Pulse Rate [Pulse Oximeter] 76 Respiratory Rate 18 Blood Pressure [Ri ght Upper Arm] 120/70 Pulse Oximetry 99 Oxygen Delivery Me thod Room Air This 43-year-old male is alert, interactive not in any distress. CV regular rate and rhythm, no murmur. Lungs are clear, no tachypnea. Abdomen is soft, nontender, slender frame, no organomegaly, no rebound or guarding. In the upper suprapubic area to the left there is an erythematous to raised area, seems to be a small abscess that likely started as a folliculitis. It is fluctuant, not draining at this time. He is tender when I palpate the area. The full area of erythema is under 2 cm in diameter. Patient consent was obtained for incision and drainage. 3 mL of 1% lidocaine were drawn up, about 1.5 mL was used locally. A small central opening was placed using a scalp all, mucoid purulent fluid returned, this was cultured. The abscess was expressed until there was no further drainage. Maybe a total of 1-2 mL was obtained. Wound culture will be sent. Have reviewed options with patient, he will take his 1st dose of oral antibiotics here and then we will send in subsequent antibiotics to cigar packer and picker at the pharmacy in the morning. Documenting provider has reviewed patient's vital signs: yes Course Vital Signs Vital signs: Initial Vital Signs Temperature 98.4 F 05/21/23 23:43 Temperature Source Temporal Artery Scan 05/21/23 23:43 Pulse Rate 76 05/21/23 23:43 Respiratory Rate 18 05/21/23 23:43 Blood Pressure 120/70 05/21/23 23:43 Blood Pressure Mean 86 05/21/23 23:43 Blood Pressure Position Sitting 05/21/23 23:43 Pulse Oximetry 99 05/21/23 23:43 Oxygen Delivery Method Room Air 05/21/23 23:43 Vital Signs Temperature 98.4 F 05/21/23 23:43 Pulse Rate 76 05/21/23 23:43 Respiratory Rate 18 05/21/23 23:43 Blood Pressure 120/70 05/21/23 23:43 Pulse Oximetry 99 05/21/23 23:43 Oxygen Delivery Method Room Air 05/21/23 23:43 Temperature 98.4 F 05/21/23 23:43 Pulse Rate 76 05/21/23 23:43 Respiratory Rate 18 05/21/23 23:43 Blood Pressure 120/70 05/21/23 23:43 Pulse Oximetry 99 05/21/23 23:43 Oxygen Delivery Method Room Air 05/21/23 23:43 Discharge Plan Discharge Clinical Impression: Abscess of skin or subcutaneous tissue Condition: Stable Instructions: Abscess Incision and Drainage (DC) Additional Instructions: Continue taking oral antibiotics, should pick them up in the morning and next 0 should be taken in the morning. These antibiotics will be twice a day. This wound may CPAP some fluid, use bandages as needed to protect her clothing. We will allow the central small opening in the wound to heal on its own, close on its own. I would expect over the next 1-2 weeks that this will be closed. You may shower as usual, do recommend doing a daily shower just keep the area clean. Pat the wound dry, allow to air dry for few minutes and then can place a bandage as needed. If you have further concerns about this wound, please seek re-evaluation. We have obtained wound culture, we will let you know if you would require any antibiotic change based on this wound culture. Activity Level: Activity as Tolerated Prescriptions: New doxycycline monohydrate 100 mg tablet 100 mg PO BID Qty: 13 0RF No Action pantoprazole [Protonix] 20 mg tablet,delayed release (DR/EC) 20 mg PO DAILY Qty: 20 2RF metoclopramide HCl [Reglan] 5 mg tablet 5 mg PO DAILY Qty: 20 0RF meloxicam 15 mg tablet 15 mg PO DAILY PRN (Reason: pain) oxycodone 5 mg tablet 5 mg PO Q6H PRN (Reason: pain) Qty: 20 0RF senna 8.6 mg capsule 8.6 mg PO DAILY PRN (Reason: constipation) Qty: 90 0RF Follow Up/Referrals: Bruce Torres MD [Primary Care Provider] - Stand Alone Forms: [facility] Info Instructions
[2023-05-22] MEDS: DOXYCYCLINE HYCLATE 100 MG PO (00:29)
== END 2023-05-22 00:33 | disposition home or self-care (01) ==
PROVIDERS: Emergency Provider Family Medicine; PCP Family Medicine
DX: L02.211 Cutaneous abscess of abdominal wall (principal)
CPT/HCPCS: 10060; 87070; 87186; 99283; A9270

== ENCOUNTER 2023-07-12 11:28 | Emergency (ER) | payer MEDICAID, SELFPAY ==
[2023-07-12] VITALS (32 sets, daily range): BP systolic 104–161; BP diastolic 59–139; PULSE 76–114; RESP 18; TEMP 36.1; O2SAT 91–100; BMI 19.8
[2023-07-12 12:18] LABS: Lactate* 2.6 mmol/L (0.5-1.9)
[2023-07-12 12:19] LABS: Basophils Absolute Auto 0.02 K/uL (0.00-0.30); Basophils Percent Auto 0.3 % (0.0-3.0); Hematocrit 42.8 % (37.0-53.0); Hemoglobin* 13.8 gm/dL (13.5-17.5); Immature Granulocytes Abs Auto 0.01 K/uL (0.00-0.30); Immature Granulocytes Pct Auto 0.1 %; Lymphocytes Percent Auto 10.1 % (20-44); Mean Corpuscular HGB Conc 32 gm/dL (32-36); Mean Corpuscular Hemoglobin 26 pg (26-34); Mean Corpuscular Volume 81 fL (80-100); Neutrophils Percent Auto 85.5 % (42.0-72.0); Platelet Count* 239 K/uL (140-440); RDW Coefficient of Variation % 12.4 % (11.5-15.5); Red Blood Count 5.29 m/uL (4.30-5.90); White Blood Count* 7.24 K/uL (4.50-11.00)
[2023-07-12 12:22] LABS: PCR FLU A Negative PCR FLU A (Negative); PCR FLU B Negative PCR FLU B (Negative); PCR RSV Negative PCR RSV (Negative); SARS PCR* Negative SARS-CoV-2 (Negative)
[2023-07-12 12:23] LABS: Slide Review Reflex No
[2023-07-12 12:29] LABS: Mono Screen* Negative (Negative)
[2023-07-12 12:31] LABS: Chloride* 105 mmol/L (96-114); Potassium* 3.9 mmol/L (3.6-5.1); Sodium* 140 mmol/L (135-149)
--- NOTE | 2023-07-12 12:31 | CRLHL7_ITS ---
For Patients: As a result of the Cures Act, medical imaging exams and procedure reports are released immediately into your electronic medical record. You may view this report before your referring provider. If you have questions, please contact your health care provider. INDICATION: Headache for 5 days. TECHNIQUE: CT head without contrast. COMPARISON: None available for direct comparison at the time of this dictation. Reference made to a prior report dated 03/25/2019.. FINDINGS: CSF spaces: Within normal limits for age. Brain parenchyma and extra-axial spaces: The sharpe-white differentiation is preserved. No intracranial mass, hemorrhage, or hydrocephalus. No extra-axial fluid collection. Sinuses, skull base and cranial vault: Right for recess mucosal thickening. Right maxillary sinus dependent layering secretions. Small left mastoid effusion. No other significant findings. IMPRESSION: Normal CT appearance of the brain. No intracranial hemorrhage, acute infarct or hydrocephalus. Incidental findings related to the paranasal sinuses and left mastoid described above. Please note that all CT scans at this facility use dose modulation, iterative reconstruction, and/or weight-based dosing when appropriate to reduce radiation dose to as low as reasonably achievable. Dictated by Waylon Fish MD @ 07/12/2023 1:07:26 PM (Electronically Signed)
--- NOTE | 2023-07-12 12:31 | ED.GENADULT ---
HPI - General Adult General Chief complaint: Headache/Migraine Stated complaint: Headache, nausea Time Seen by Provider: 07/12/23 11:36 Source: patient Mode of arrival: EMS Limitations: language barrier and other (Does not want to participate in conversation) History of Present Illness HPI narrative: 43-year-old male with a history of alcohol use disorder in now in remission for the last 2 years, no other active medical problems, presents today with headache vomiting fever and chills. Patient states that he has been ill for 5 days with a headache, vomiting started 2 or 3 days ago. Has been having on and off diarrhea unclear how much or her often. Patient does have hemorrhoids which his mother states have been bleeding recently. She states that she has seen when he ?his bathroom looks like a [place] house? she states that she denies seeing anything like this in the last couple of days, therefore it is unclear how much bleeding he is actually having. Fevers and chills at home. Unclear of how high fevers have been. Patient is a very poor historian. He does have hearing loss and communicates via L. he is in bed under the covers and really is not participating much in this conversation. His mother is doing most of the communicating. When his mother asked how long he has been sick he says 5 days however she also tells me that he came over to her house yesterday and had no complaints of fevers, chills nausea or vomiting. She does state that 3 days ago he called her and said that he had a headache, but again, appeared to be in in normal health yesterday. He denies any recent traveling. Denies any substance use. Complains of chills and rigors. He does complain of full body aches including chest, abdomen, back pain. Patient denies alcohol use. Does state that he smokes marijuana at night to help him sleep, has been smoking for 25 years. Related Data Previous Rx's Medication Instructions Recorded meclizine 25 mg tablet 25 mg PO BID PRN dizziness #10 tabs 07/12/23 ondansetron HCl 4 mg tablet 4 mg PO TID PRN nausea and 07/12/23 vomiting #10 tabs Allergies Allergy/AdvReac Type Severity Reaction Status Date / Time No Known Drug Allergies Allergy Verified 12/12/22 13:06 Review of Systems Status of ROS: Reports: 10 or more systems reviewed and unremarkable except as noted in History and below [facility] Surgical History Hx of appendectomy ?Z90.49 - Acquired absence of other specified parts of digestive tract (ICD-10) Social History Smoking Status: Current every day smoker What tobacco products do you use: cigarettes Do you use any of these nicotine containing products: None Second hand tobacco smoke exposure: No How often do you have a drink containing alcohol: never AUDIT-C Alcohol total score: 0 Non-prescribed substance use: marijuana (any form) Exam Narrative: Exam Narrative: Well-nourished well-developed patient in no acute distress. Alert and oriented but does not want to participate in conversation. Hard of hearing. Speaks via ASL. HEENT: Normocephalic atraumatic. Pupils are equally round reactive to light. Extraocular muscles are intact. Conjunctivae are moist without any icterus noted. Moist mucous membranes. Posterior pharynx is normal. Neck is soft without any lymphadenopathy or thyromegaly. No masses are appreciated. TMs clear bilaterally. Cardiovascular: Heart is regular rate and rhythm S1 and S2 are present without any murmurs. Lungs: Clear to auscultation bilaterally no wheezes rhonchi or rales are appreciated. Patient takes deep breaths without any discomfort. Abdomen: Soft and nontender nondistended with normal bowel sounds. No guarding or rebound. No masses or organomegaly appreciated. Extremities: Bilateral lower extremities are without edema. Normal DP and PT pulses. Skin: Well perfused without any obvious rashes. Back: Normal appearance. No point tenderness. Strength is 5/5 of the upper extremities. Patient is able to both most arms when needed. He is able to roll back and forth in bed without assistance. Reflexes are 2+ and symmetric at the knees. There is no nystagmus either horizontally or vertically. Const: Vital Signs, click to edit/add: Vital Signs - 24 hr 07/12/23 11:37 07/12/23 11:57 07/12/23 12:26 Temperature 96.9 F L Pulse Rate 76 Pulse Rate [Pulse Oximeter] 97 Respiratory Rate 18 Blood Pressure Blood Pressure [Ri ght Upper Arm] 161/139 H Pulse Oximetry 100 99 97 Oxygen Delivery Me thod Room Air 07/12/23 12:30 07/12/23 12:32 07/12/23 12:33 Temperature Pulse Rate 79 80 81 Pulse Rate [Pulse Oximeter] Respiratory Rate Blood Pressure 117/59 L Blood Pressure [Ri ght Upper Arm] Pulse Oximetry 98 99 99 Oxygen Delivery Me thod 07/12/23 12:52 07/12/23 13:00 07/12/23 13:02 Temperature Pulse Rate 81 84 88 Pulse Rate [Pulse Oximeter] Respiratory Rate Blood Pressure 109/72 Blood Pressure [Ri ght Upper Arm] Pulse Oximetry 100 100 98 Oxygen Delivery Me thod 07/12/23 13:15 07/12/23 13:32 07/12/23 13:32 Temperature Pulse Rate 87 Pulse Rate [Pulse Oximeter] Respiratory Rate Blood Pressure 146/96 H 146/96 H Blood Pressure [Ri ght Upper Arm] Pulse Oximetry 100 Oxygen Delivery Me thod 07/12/23 13:42 07/12/23 13:45 07/12/23 14:00 Temperature 97.0 F L Pulse Rate 78 96 86 Pulse Rate [Pulse Oximeter] Respiratory Rate Blood Pressure Blood Pressure [Ri ght Upper Arm] Pulse Oximetry 98 98 99 Oxygen Delivery Me thod 07/12/23 14:02 07/12/23 14:15 07/12/23 14:30 Temperature Pulse Rate 84 102 H 114 H Pulse Rate [Pulse Oximeter] Respiratory Rate Blood Pressure 106/76 Blood Pressure [Ri ght Upper Arm] Pulse Oximetry 99 98 98 Oxygen Delivery Me thod 07/12/23 14:32 07/12/23 14:45 07/12/23 15:00 Temperature Pulse Rate 99 106 H 96 Pulse Rate [Pulse Oximeter] Respiratory Rate Blood Pressure 113/83 Blood Pressure [Ri ght Upper Arm] Pulse Oximetry 98 98 98 Oxygen Delivery Me thod 07/12/23 15:02 07/12/23 15:22 07/12/23 15:30 Temperature Pulse Rate 97 94 109 H Pulse Rate [Pulse Oximeter] Respiratory Rate Blood Pressure 109/69 Blood Pressure [Ri ght Upper Arm] Pulse Oximetry 98 99 100 Oxygen Delivery Me thod 07/12/23 15:32 07/12/23 15:46 07/12/23 16:00 Temperature Pulse Rate 94 108 H 95 Pulse Rate [Pulse Oximeter] Respiratory Rate Blood Pressure 138/89 Blood Pressure [Ri ght Upper Arm] Pulse Oximetry 99 99 99 Oxygen Delivery Me thod 07/12/23 16:02 07/12/23 16:15 07/12/23 16:30 Temperature Pulse Rate 96 85 93 Pulse Rate [Pulse Oximeter] Respiratory Rate Blood Pressure 120/75 Blood Pressure [Ri ght Upper Arm] Pulse Oximetry 98 98 98 Oxygen Delivery Me thod 07/12/23 16:32 07/12/23 16:35 07/12/23 16:45 Temperature Pulse Rate 106 H 92 Pulse Rate [Pulse Oximeter] Respiratory Rate Blood Pressure 104/65 Blood Pressure [Ri ght Upper Arm] Pulse Oximetry 91 95 99 Oxygen Delivery Me thod Course Course ED Course: Patient did receive 15 mg of IV Toradol in the ambulance, another 15 was given in the ED. He already received Zofran. IV fluids were started and labs were drawn. CBCs unremarkable. Triple swab was negative. Valley negative. Lactate elevated at 2.6. Electrolytes are within normal limits. Normal kidney function. CRP is less than 0.5. Normal lipase. We also did a head CT, which was unremarkable, aside from some fluid in his sinuses. After his 1 L fluid did re-evaluate the patient. His mother is very upset at this time. Tells me that she would like to take him to another hospital. When I ask her what she would like to see that has not been done, she tells me that she can not believe he has only received 1 L of normal saline. At this time, I offered to start another L of normal saline verses having them discharged. Patient's mother states that she would like to do the 2 L of normal saline at this time. Patient continues to not participate in conversation. Of note patient's pulse on arrival was 97, this went down to upper 70s and 80 after 1 L of normal saline. [place] through the 2 L of normal saline and repeat dosing of Zofran, I checked on the patient once again. He was now awake and willing to participate in conversation. At this time he tells me that any time he moves that the room starts to spin around him and that is when he throws up. If he lays still, he is asymptomatic. He also tells me that he has had diarrhea multiple times per day for the last 2 days. His headache has been consistent for the last 5 days and nothing seems to make it better or worse it just comes and goes throughout the day multiple times. His mother is quite concerned that he has some kind of abdominal pathology. Patient states that he has abdominal discomfort when he vomits but that if he is lying still than his abdomen does not hurt. Mom mentions multiple times that she feels like he has abdominal pathology. Because of this, an abdominal CT scan was ordered. This showed colonic wall thickening consistent with mild inflammation of the colon. Repeat lactate was normal at 1.2. UA unremarkable. Urine drug screen positive for marijuana. Meclizine was ordered for his vertigo, however he started retching again. Therefore droperidol and Valium were ordered IV. And, at the insistence of both patient and his mother, a third L of IV fluids were ordered as well. Patient did not have repeat vomiting after the droperidol and Valium were given. I discussed with mom the diagnosis of gastroenteritis and vertigo. She tells me that ?a stomach bug is not an ICD 10 diagnosis. There is clearly something going on and you're missing it. Mom is very angry at this point. Vital Signs Vital signs: Initial Vital Signs Temperature 96.9 F L 07/12/23 11:37 Temperature Source Temporal Artery Scan 07/12/23 11:37 Pulse Rate 97 07/12/23 11:37 Respiratory Rate 07/12/23 11:37 Blood Pressure 161/139 H 07/12/23 11:37 Blood Pressure Mean 146 H 07/12/23 11:37 Pulse Oximetry 100 07/12/23 11:37 Oxygen Delivery Method Room Air 07/12/23 11:37 Vital Signs Temperature 96.9 F L 07/12/23 11:37 Pulse Rate 97 07/12/23 11:37 Respiratory Rate 18 07/12/23 11:37 Blood Pressure 161/139 H 07/12/23 11:37 Pulse Oximetry 100 07/12/23 11:37 Oxygen Delivery Method Room Air 07/12/23 11:37 Temperature 97.0 F L 07/12/23 13:45 Pulse Rate 92 07/12/23 16:45 Respiratory Rate 18 07/12/23 11:37 Blood Pressure 104/65 07/12/23 16:32 Pulse Oximetry 99 07/12/23 16:45 Oxygen Delivery Method Room Air 07/12/23 11:37 Medications Administered Medications: Discontinued Medications Generic Name Dose Route Start Last Admin Trade Name Corina PRN Reason Stop Dose Admin Diazepam 5 mg 07/12/23 15:34 07/12/23 15:45 Diazepam 5 Mg/Ml Inj IV 07/12/23 15:35 5 mg ONCE ONE Administration Diphenhydramine HCl 25 mg 07/12/23 13:30 07/12/23 13:37 Diphenhydramine 50 Mg/Ml Inj IVP 07/12/23 13:31 25 mg ONCE ONE Administration Droperidol 0.625 mg 07/12/23 15:27 07/12/23 15:50 Droperidol 2.5 Mg/Ml Inj IV 07/12/23 15:28 0.625 mg ONCE ONE Administration Sodium Chloride 1,000 mls @ 1,000 mls/hr 07/12/23 12:00 07/12/23 13:42 0.9 % Sodium Chloride 1000 Ml IV 07/12/23 12:59 Infused .Q1H JEFERSON Infusion Sodium Chloride 1,000 mls @ 1,000 mls/hr 07/12/23 14:00 07/12/23 15:05 0.9 % Sodium Chloride 1000 Ml IV 07/12/23 14:59 Infused .Q1H JEFERSON Infusion Sodium Chloride 1,000 mls @ 1,000 mls/hr 07/12/23 16:00 07/12/23 16:15 0.9 % Sodium Chloride 1000 Ml IV 07/12/23 16:59 1,000 mls/hr .Q1H JEFERSON Administration Ketorolac Tromethamine 15 mg 07/12/23 11:57 07/12/23 12:32 Ketorolac 15 Mg/Ml Inj IVP 07/12/23 11:58 15 mg ONCE ONE Administration Meclizine HCl 25 mg 07/12/23 14:58 07/12/23 17:18 Meclizine Hcl 25 Mg Tablet PO 07/12/23 14:59 Not Given ONCE ONE Ondansetron HCl 4 mg 07/12/23 13:30 07/12/23 13:37 Ondansetron 2 Mg/Ml Inj IVP 07/12/23 13:31 4 mg ONCE ONE Administration Medical Decision Making [facility] Narrative Medical decision making narrative: 43-year-old male with vomiting diarrhea, vertigo, mild colitis. Differential diagnosis for vomiting and diarrhea include gastroenteritis, colitis, canabinoid hyperemesis syndrome, migraine headache. We have effectively ruled out pancreatitis, hepatitis, bowel obstruction. Patient has history of appendectomy so appendicitis has been ruled out. Differential diagnoses for his vertigo include benign positional vertigo, labyrinthitis, migraine headache. I do not believe his symptoms are related to a stroke. Despite having this conversation about causes of his symptoms with the patient's mother, she continues to be upset that we are not diagnosing him and definitively treating him today. Lab Data Lab results reviewed: Yes I reviewed the patient's lab results Labs: Lab Results 07/12/23 07/12/23 07/12/23 Range/Units 11:36 12:12 14:16 WBC 7.24 (4.50-11.00) K/uL RBC 5.29 (4.30-5.90) m/uL Hgb 13.8 (13.5-17.5) gm/dL Hct 42.8 (37.0-53.0) % MCV 81 (80-100) fL MCH 26 (26-34) pg MCHC 32 (32-36) gm/dL RDW Coeff of Anurag 12.4 (11.5-15.5) % Plt Count 239 (140-440) K/uL Neut % (Auto) 85.5 H (42.0-72.0) % Lymph % (Auto) 10.1 L (20-44) % Valley % (Auto) 4.0 (0.0-11.0) % Eos % (Auto) 0.0 (0.0-7.0) % Baso % (Auto) 0.3 (0.0-3.0) % Neut # (Auto) 6.20 (1.7-7.0) K/uL Lymph # (Auto) 0.70 L (0.90-2.90) K/uL Valley # (Auto) 0.30 (0.00-0.90) K/UL Eos # (Auto) 0.00 (0.00-0.50) K/uL Baso # (Auto) 0.02 (0.00-0.30) K/uL Abs Immat Gran (auto) 0.01 (0.00-0.30) K/uL Imm/Tot Granulo (auto) 0.1 % Sodium 140 (135-149) mmol/L Potassium 3.9 (3.6-5.1) mmol/L Chloride 105 (96-114) mmol/L Carbon Dioxide 22 (20-32) mmol/L Anion Gap 13 (7-15) mEq/L BUN 14 (5-24) mg/dL Creatinine 0.6 (0.5-1.5) mg/dL Estimated Creat Clear 154.35 Estimated GFR 124 ml/min Glucose 156 H (60-115) mg/dL Lactate 2.6 H (0.5-1.9) mmol/L Calcium 9.4 (8.4-10.6) mg/dL Total Bilirubin 0.5 (0.1-1.5) mg/dL Direct Bilirubin 0.1 (0.0-0.5) mg/dL AST 26 (12-35) U/L ALT 20 (4-50) U/L Alkaline Phosphatase 67 (40-150) U/L C-Reactive Protein < 0.5 L (0.5-1.0) mg/dL Total Protein 7.7 (6.0-8.3) g/dL Albumin 5.0 (3.3-5.0) g/dL Lipase 73 (23-300) U/L Urine Color (Yellow) Urine Appearance (Clear) Urine pH (5.0-8.5) Ur Specific Banco (1.000-1.030) Urine Protein (Negative) Urine Glucose (UA) (Negative) Urine Ketones (Negative) Urine Blood (Negative) Urine Nitrite (Negative) Urine Bilirubin (Negative) Urine Urobilinogen (0.2-1.0) Ur Leukocyte Esterase (Negative) Urine RBC (0-2) Urine WBC (0-5) Ur Squamous Epith Cells (None-Few) Urine Bacteria (None) Urine Opiates Screen (Negative) Ur Oxycodone Screen (Negative) Urine Methadone Screen (Negative) Ur Barbiturates Screen (Negative) U Tricyclic Antidepress (Negative) Ur Phencyclidine Scrn (Negative) Ur Amphetamines Screen (Negative) U Methamphetamines Scrn (Negative) U Benzodiazepines Scrn (Negative) Urine Cocaine Screen (Negative) U Marijuana (THC) Screen (Negative) Ur Drug Screen Comment Ethyl Alcohol < 0.01 L (0.01-0.03) % SARS-CoV-2 (PCR) Negative SARS-CoV-2 (Negative) Monoscreen Negative (Negative) Influenza Type A (PCR) Negative PCR FLU A (Negative) Influenza Type B (PCR) Negative PCR FLU B (Negative) RSV (PCR) Negative PCR RSV (Negative) Lab Acknowledgement Test Added 07/12/23 07/12/23 Range/Units 14:45 15:47 WBC (4.50-11.00) K/uL RBC (4.30-5.90) m/uL Hgb (13.5-17.5) gm/dL Hct (37.0-53.0) % MCV (80-100) fL MCH (26-34) pg MCHC (32-36) gm/dL RDW Coeff of Anurag (11.5-15.5) % Plt Count (140-440) K/uL Neut % (Auto) (42.0-72.0) % Lymph % (Auto) (20-44) % Valley % (Auto) (0.0-11.0) % Eos % (Auto) (0.0-7.0) % Baso % (Auto) (0.0-3.0) % Neut # (Auto) (1.7-7.0) K/uL Lymph # (Auto) (0.90-2.90) K/uL Valley # (Auto) (0.00-0.90) K/UL Eos # (Auto) (0.00-0.50) K/uL Baso # (Auto) (0.00-0.30) K/uL Abs Immat Gran (auto) (0.00-0.30) K/uL Imm/Tot Granulo (auto) % Sodium (135-149) mmol/L Potassium (3.6-5.1) mmol/L Chloride (96-114) mmol/L Carbon Dioxide (20-32) mmol/L Anion Gap (7-15) mEq/L BUN (5-24) mg/dL Creatinine (0.5-1.5) mg/dL Estimated Creat Clear Estimated GFR ml/min Glucose (60-115) mg/dL Lactate 1.2 (0.5-1.9) mmol/L Calcium (8.4-10.6) mg/dL Total Bilirubin (0.1-1.5) mg/dL Direct Bilirubin (0.0-0.5) mg/dL AST (12-35) U/L ALT (4-50) U/L Alkaline Phosphatase (40-150) U/L C-Reactive Protein (0.5-1.0) mg/dL Total Protein (6.0-8.3) g/dL Albumin (3.3-5.0) g/dL Lipase (23-300) U/L Urine Color Yellow (Yellow) Urine Appearance Clear (Clear) Urine pH 7.0 (5.0-8.5) Ur Specific Banco 1.020 (1.000-1.030) Urine Protein Negative (Negative) Urine Glucose (UA) Negative (Negative) Urine Ketones Trace A (Negative) Urine Blood Negative (Negative) Urine Nitrite Negative (Negative) Urine Bilirubin Negative (Negative) Urine Urobilinogen 0.2 (0.2-1.0) Ur Leukocyte Esterase Negative (Negative) Urine RBC 0-2 (0-2) Urine WBC 0-2 (0-5) Ur Squamous Epith Cells None (None-Few) Urine Bacteria None (None) Urine Opiates Screen Negative (Negative) Ur Oxycodone Screen Negative (Negative) Urine Methadone Screen Negative (Negative) Ur Barbiturates Screen Negative (Negative) U Tricyclic Antidepress Negative (Negative) Ur Phencyclidine Scrn Negative (Negative) Ur Amphetamines Screen Negative (Negative) U Methamphetamines Scrn Negative (Negative) U Benzodiazepines Scrn Negative (Negative) Urine Cocaine Screen Negative (Negative) U Marijuana (THC) Screen POSITIVE A (Negative) Ur Drug Screen Comment See Note Ethyl Alcohol (0.01-0.03) % SARS-CoV-2 (PCR) (Negative) Monoscreen (Negative) Influenza Type A (PCR) (Negative) Influenza Type B (PCR) (Negative) RSV (PCR) (Negative) Lab Acknowledgement Imaging Data CT scan - head: Attestation: I have reviewed the pertinent imaging results. Radiologist's impression: CT head without contrast. COMPARISON: None available for direct comparison at the time of this dictation. Reference made to a prior report dated 03/25/2019.. FINDINGS: CSF spaces: Within normal limits for age. Brain parenchyma and extra-axial spaces: The sharpe-white differentiation is preserved. No intracranial mass, hemorrhage, or hydrocephalus. No extra-axial fluid collection. Sinuses, skull base and cranial vault: Right for recess mucosal thickening. Right maxillary sinus dependent layering secretions. Small left mastoid effusion. No other significant findings. IMPRESSION: Normal CT appearance of the brain. No intracranial hemorrhage, acute infarct or hydrocephalus. Incidental findings related to the paranasal sinuses and left mastoid described above. CT scan - abdomen: Attestation: I have reviewed the pertinent imaging results. Radiologist's impression: Comparison: CT abdomen and pelvis October 30, 2022 Findings: The lung bases are clear. The liver is normal in attenuation without intrahepatic biliary ductal dilatation. The portal vein is patent. The gallbladder is unremarkable without evidence of radiopaque calculus. There is no significant common biliary ductal dilatation or abrupt cut off. The spleen is normal in enhancement and size. The stomach and duodenum are grossly unremarkable. The pancreas is normal in enhancement without significant atrophy. The adrenal glands are unremarkable. The kidneys demonstrate preserved corticomedullary differentiation without evidence of obstructive uropathy. There is decompressed appearance of the entirety of the colon with suggestion of mild colon wall thickening and/or inflammatory change. The small bowel is decompressed. The appendix is unremarkable. There is no significant mesenteric, retroperitoneal, or pelvic sidewall lymph nodes. The aorta is nonaneurysmal. There is no significant atherosclerotic disease appreciated. The solid pelvic viscera are grossly unremarkable. There is no free fluid or free air. The anterior abdominal wall is intact without significant hernias. The lumbar vertebral body heights are grossly maintained with mild multi-level degenerative disc disease. Impression: Decompressed appearance of the entirety of the colon with questionable moderate thickening and inflammatory change. Findings may represent mild infectious or inflammatory colitis. No other acute intra-abdominal abnormalities are identified. Discharge Plan Discharge Clinical Impression: Gastroenteritis, Vertigo, Colitis Patient Disposition: Home, Self-Care Condition: Stable Additional Instructions: Stay well hydrated by drinking small amounts of fluids frequently throughout the day. Rest as much as you need to. Get good sleep. Okay to use medications as needed for nausea and vertigo. Both sent to the pharmacy today. Follow-up with your primary care provider if vertigo is not improving over the next several days. Prescriptions: New ondansetron HCl 4 mg tablet 4 mg PO TID PRN (Reason: nausea and vomiting) Qty: 10 0RF meclizine 25 mg tablet 25 mg PO BID PRN (Reason: dizziness) Qty: 10 0RF Follow Up/Referrals: Bruce Torres MD [Primary Care Provider] - Stand Alone Forms: [facility] Info Instructions
[2023-07-12] MEDS: 0.9 % SODIUM CHLORIDE 1000 ml 1,000 ML IV ×3 (12:32→16:15)
[2023-07-12] MEDS: KETOROLAC 15 MG/ML inj IVP (12:32)
[2023-07-12 12:34] LABS: Creatinine* 0.6 mg/dL (0.5-1.5); Est. Creatinine Clearance* 154.35; Estimated Glomerular Filt Rate 124 ml/min
[2023-07-12 12:35] LABS: Anion Gap 13 mEq/L (7-15); Bilirubin Direct* 0.1 mg/dL (0.0-0.5); Bilirubin Total* 0.5 mg/dL (0.1-1.5); Blood Urea Nitrogen* 14 mg/dL (5-24); Calcium* 9.4 mg/dL (8.4-10.6); Carbon Dioxide* 22 mmol/L (20-32); Glucose* 156 mg/dL (60-115); Total Protein* 7.7 g/dL (6.0-8.3)
[2023-07-12 12:36] LABS: Alanine Aminotransferase* 20 U/L (4-50); Alkaline Phosphatase* 67 U/L (40-150); Aspartate Amino Transferase* 26 U/L (12-35); Lipase* 73 U/L (23-300)
[2023-07-12 12:39] LABS: C Reactive Protein* < 0.5 mg/dL (0.5-1.0)
[2023-07-12] MEDS: ONDANSETRON 2 MG/ML inj 4 MG IVP (13:37)
[2023-07-12] MEDS: diphenhydrAMINE 50 MG/ML inj 25 MG IVP (13:37)
--- NOTE | 2023-07-12 14:00 | ED.NURSE ---
Patients mother stated If there isn't anything else you are going to do with him, then i am just going to take him up to [place] to my hospital. spoke more in length with mother. [employer] offered to speak with our patient advocate but she stated no, i don't need to speak with her.
--- NOTE | 2023-07-12 14:48 | CRLHL7_ITS ---
For Patients: As a result of the Century Cures Act, medical imaging exams and procedure reports are released immediately into your electronic medical record. You may view this report before your referring provider. If you have questions, please contact your health care provider. Indication: Diffuse abdominal pain, left lower quadrant pain Technique: Volumetric multidetector CT images of the abdomen and pelvis were obtained after the administration of intravenous contrast. 74 cc Isovue 370 low osmolar intravenous contrast Comparison: CT abdomen and pelvis October 30, 2022 Findings: The lung bases are clear. The liver is normal in attenuation without intrahepatic biliary ductal dilatation. The portal vein is patent. The gallbladder is unremarkable without evidence of radiopaque calculus. There is no significant common biliary ductal dilatation or abrupt cut off. The spleen is normal in enhancement and size. The stomach and duodenum are grossly unremarkable. The pancreas is normal in enhancement without significant atrophy. The adrenal glands are unremarkable. The kidneys demonstrate preserved corticomedullary differentiation without evidence of obstructive uropathy. There is decompressed appearance of the entirety of the colon with suggestion of mild colon wall thickening and/or inflammatory change. The small bowel is decompressed. The appendix is unremarkable. There is no significant mesenteric, retroperitoneal, or pelvic sidewall lymph nodes. The aorta is nonaneurysmal. There is no significant atherosclerotic disease appreciated. The solid pelvic viscera are grossly unremarkable. There is no free fluid or free air. The anterior abdominal wall is intact without significant hernias. The lumbar vertebral body heights are grossly maintained with mild multi-level degenerative disc disease. Impression: Decompressed appearance of the entirety of the colon with questionable moderate thickening and inflammatory change. Findings may represent mild infectious or inflammatory colitis. No other acute intra-abdominal abnormalities are identified. Please note that all CT scans at this facility use dose modulation, iterative reconstruction, and/or weight-based dosing when appropriate to reduce radiation dose to as low as reasonably achievable. Dictated by Yoav Melo MD @ 07/12/2023 3:57:20 PM (Electronically Signed)
[2023-07-12 14:53] LABS: Ethanol* < 0.01 % (0.01-0.03)
[2023-07-12 15:08] LABS: Lactate* 1.2 mmol/L (0.5-1.9)
--- NOTE | 2023-07-12 15:35 | ED.NURSE ---
Mom placed call light as patient was retching. Meclizine was ordered but held due to inability to tolerate orals at this time.
[2023-07-12] MEDS: diazePAM 5 MG/ML inj IV (15:45)
[2023-07-12] MEDS: droperidoL 2.5 MG/ML inj 0.625 MG IV (15:50)
[2023-07-12 15:58] LABS: Appearance Urine Clear (Clear); Bilirubin Urine Negative (Negative); Blood Urine Negative (Negative); Color Urine Yellow (Yellow); Glucose Urine Negative (Negative); Ketones Urine Trace (Negative); Leukocyte Esterase Urine Negative (Negative); Nitrite Urine Negative (Negative); Protein Urine Negative (Negative); Urobilinogen Urine 0.2 (0.2-1.0)
[2023-07-12 16:05] LABS: Amphetamine Screen Urine Negative (Negative); Barbiturate Screen Urine Negative (Negative); Benzodiazepines Screen Urine Negative (Negative); Cannabinoid Screen Urine POSITIVE (Negative); Cocaine Screen Urine Negative (Negative); Methadone Screen Urine Negative (Negative); Methamphetamines Screen Urine Negative (Negative); Opiate Screen Urine Negative (Negative); Oxycodone Screen Urine Negative (Negative); Phencyclidine Screen Urine Negative (Negative); Tricyclic Antidepressant Urine Negative (Negative)
[2023-07-12 16:18] LABS: RBC Urine 0-2 (0-2); WBC Urine 0-2 (0-5)
--- NOTE | 2023-07-12 16:35 | ED.NURSE ---
Went in with discharge papers to patient's room. Mom stopped me and said that she needed to talk to a doctor before she would leave. I explained that Dr. Martinez had left but I would ask another MD to speak with her. She seems discontent. I spoke with patient through in-person [employer], asked how he was feeling and how his symptoms were. He reports he is better but still not great if he gets up to move around. Asked if he had any questions or concerns regarding his care and he replies, no. I did relay request to speak to an MD to another doctor.
--- NOTE | 2023-07-12 16:56 | ED.GENADULT ---
HPI - General Adult General Chief complaint: Headache/Migraine Stated complaint: Headache, nausea Time Seen by Provider: 07/12/23 11:36 Source: patient Mode of arrival: EMS Limitations: language barrier and other (Does not want to participate in conversation) Related Data Previous Rx's Medication Instructions Recorded meclizine 25 mg tablet 25 mg PO BID PRN dizziness #10 tabs 07/12/23 ondansetron HCl 4 mg tablet 4 mg PO TID PRN nausea and 07/12/23 vomiting #10 tabs Allergies Allergy/AdvReac Type Severity Reaction Status Date / Time No Known Drug Allergies Allergy Verified 12/12/22 13:06 [facility] Surgical History Hx of appendectomy ?Z90.49 - Acquired absence of other specified parts of digestive tract (ICD-10) Social History Smoking Status: Current every day smoker What tobacco products do you use: cigarettes Do you use any of these nicotine containing products: None Second hand tobacco smoke exposure: No How often do you have a drink containing alcohol: never AUDIT-C Alcohol total score: 0 Non-prescribed substance use: marijuana (any form) Exam Const: Vital Signs, click to edit/add: Vital Signs - 24 hr 07/12/23 11:37 07/12/23 11:57 07/12/23 12:26 Temperature 96.9 F L Pulse Rate 76 Pulse Rate [Pulse Oximeter] 97 Respiratory Rate 18 Blood Pressure Blood Pressure [Ri ght Upper Arm] 161/139 H Pulse Oximetry 100 99 97 Oxygen Delivery Me thod Room Air 07/12/23 12:30 07/12/23 12:32 07/12/23 12:33 Temperature Pulse Rate 79 80 81 Pulse Rate [Pulse Oximeter] Respiratory Rate Blood Pressure 117/59 L Blood Pressure [Ri ght Upper Arm] Pulse Oximetry 98 99 99 Oxygen Delivery Me thod 07/12/23 12:52 07/12/23 13:00 07/12/23 13:02 Temperature Pulse Rate 81 84 88 Pulse Rate [Pulse Oximeter] Respiratory Rate Blood Pressure 109/72 Blood Pressure [Ri ght Upper Arm] Pulse Oximetry 100 100 98 Oxygen Delivery Me thod 07/12/23 13:15 07/12/23 13:32 07/12/23 13:32 Temperature Pulse Rate 87 Pulse Rate [Pulse Oximeter] Respiratory Rate Blood Pressure 146/96 H 146/96 H Blood Pressure [Ri ght Upper Arm] Pulse Oximetry 100 Oxygen Delivery Me thod 07/12/23 13:42 07/12/23 13:45 07/12/23 14:00 Temperature 97.0 F L Pulse Rate 78 96 86 Pulse Rate [Pulse Oximeter] Respiratory Rate Blood Pressure Blood Pressure [Ri ght Upper Arm] Pulse Oximetry 98 98 99 Oxygen Delivery Me thod 07/12/23 14:02 07/12/23 14:15 07/12/23 14:30 Temperature Pulse Rate 84 102 H 114 H Pulse Rate [Pulse Oximeter] Respiratory Rate Blood Pressure 106/76 Blood Pressure [Ri ght Upper Arm] Pulse Oximetry 99 98 98 Oxygen Delivery Me thod 07/12/23 14:32 07/12/23 14:45 07/12/23 15:00 Temperature Pulse Rate 99 106 H 96 Pulse Rate [Pulse Oximeter] Respiratory Rate Blood Pressure 113/83 Blood Pressure [Ri ght Upper Arm] Pulse Oximetry 98 98 98 Oxygen Delivery Me thod 07/12/23 15:02 07/12/23 15:22 07/12/23 15:30 Temperature Pulse Rate 97 94 109 H Pulse Rate [Pulse Oximeter] Respiratory Rate Blood Pressure 109/69 Blood Pressure [Ri ght Upper Arm] Pulse Oximetry 98 99 100 Oxygen Delivery Il thod 07/12/23 15:32 07/12/23 15:46 07/12/23 16:00 Temperature Pulse Rate 94 108 H 95 Pulse Rate [Pulse Oximeter] Respiratory Rate Blood Pressure 138/89 Blood Pressure [Ri ght Upper Arm] Pulse Oximetry 99 99 99 Oxygen Delivery Me thod 07/12/23 16:02 07/12/23 16:15 07/12/23 16:30 Temperature Pulse Rate 96 85 93 Pulse Rate [Pulse Oximeter] Respiratory Rate Blood Pressure 120/75 Blood Pressure [Ri ght Upper Arm] Pulse Oximetry 98 98 98 Oxygen Delivery Me thod 07/12/23 16:32 07/12/23 16:35 07/12/23 16:45 Temperature Pulse Rate 106 H 92 Pulse Rate [Pulse Oximeter] Respiratory Rate Blood Pressure 104/65 Blood Pressure [Ri ght Upper Arm] Pulse Oximetry 91 95 99 Oxygen Delivery Me thod Course Reevaluation(s) Time of Reevaluation #1: 16:56 Reevaluation #1: Patient was set up for discharge after extensive evaluation of his complaints of headache, dizziness, nausea and vomiting which were negative other than lactate of 2.6 corrected to 1.2 after fluid, with normal CBC, normal basic metabolic panel, normal hepatic panel, negative CRP, negative lipase, negative urinalysis, negative urine drug screen out in the marijuana, negative head CT, negative abdominal CT, negative alcohol level, stable vital signs. Patient received Toradol, Valium, droperidol, and 3 L of fluid in the emergency department. I extensively reviewed the patient chart. However, when I went to see the patient he had already left the department. Vital Signs Vital signs: Initial Vital Signs Temperature 96.9 F L 07/12/23 11:37 Temperature Source Temporal Artery Scan 07/12/23 11:37 Pulse Rate 97 07/12/23 11:37 Respiratory Rate 18 07/12/23 11:37 Blood Pressure 161/139 H 07/12/23 11:37 Blood Pressure Mean 146 H 07/12/23 11:37 Pulse Oximetry 100 07/12/23 11:37 Oxygen Delivery Method Room Air 07/12/23 11:37 Vital Signs Temperature 96.9 F L 07/12/23 11:37 Pulse Rate 97 07/12/23 11:37 Respiratory Rate 18 07/12/23 11:37 Blood Pressure 161/139 H 07/12/23 11:37 Pulse Oximetry 100 07/12/23 11:37 Oxygen Delivery Method Room Air 07/12/23 11:37 Temperature 97.0 F L 07/12/23 13:45 Pulse Rate 92 07/12/23 16:45 Respiratory Rate 18 07/12/23 11:37 Blood Pressure 104/65 07/12/23 16:32 Pulse Oximetry 99 07/12/23 16:45 Oxygen Delivery Method Room Air 07/12/23 11:37 Medications Administered Medications: Discontinued Medications Generic Name Dose Route Start Last Admin Trade Name Freq PRN Reason Stop Dose Admin Diazepam 5 mg 07/12/23 15:34 07/12/23 15:45 Diazepam 5 Mg/Ml Inj IV 07/12/23 15:35 5 mg ONCE ONE Administration Diphenhydramine HCl 25 mg 07/12/23 13:30 07/12/23 13:37 Diphenhydramine 50 Mg/Ml Inj IVP 07/12/23 13:31 25 mg ONCE ONE Administration Droperidol 0.625 mg 07/12/23 15:27 07/12/23 15:50 Droperidol 2.5 Mg/Ml Inj IV 07/12/23 15:28 0.625 mg ONCE ONE Administration Sodium Chloride 1,000 mls @ 1,000 mls/hr 07/12/23 12:00 07/12/23 13:42 0.9 % Sodium Chloride 1000 Ml IV 07/12/23 12:59 Infused .Q1H JEFERSON Infusion Sodium Chloride 1,000 mls @ 1,000 mls/hr 07/12/23 14:00 07/12/23 15:05 0.9 % Sodium Chloride 1000 Ml IV 07/12/23 14:59 Infused .Q1H JEFERSON Infusion Sodium Chloride 1,000 mls @ 1,000 mls/hr 07/12/23 16:00 07/12/23 16:15 0.9 % Sodium Chloride 1000 Ml IV 07/12/23 16:59 1,000 mls/hr .Q1H JEFERSON Administration Ketorolac Tromethamine 15 mg 07/12/23 11:57 07/12/23 12:32 Ketorolac 15 Mg/Ml Inj IVP 07/12/23 11:58 15 mg ONCE ONE Administration Ondansetron HCl 4 mg 07/12/23 13:30 07/12/23 13:37 Ondansetron 2 Mg/Ml Inj IVP 07/12/23 13:31 4 mg ONCE ONE Administration Medical Decision Making Lab Data Labs: Lab Results 07/12/23 07/12/23 07/12/23 Range/Units 11:36 12:12 14:16 WBC 7.24 (4.50-11.00) K/uL RBC 5.29 (4.30-5.90) m/uL Hgb 13.8 (13.5-17.5) gm/dL Hct 42.8 (37.0-53.0) % MCV 81 (80-100) fL MCH 26 (26-34) pg MCHC 32 (32-36) gm/dL RDW Coeff of Anurag 12.4 (11.5-15.5) % Plt Count 239 (140-440) K/uL Neut % (Auto) 85.5 H (42.0-72.0) % Lymph % (Auto) 10.1 L (20-44) % [place] % (Auto) 4.0 (0.0-11.0) % Eos % (Auto) 0.0 (0.0-7.0) % Baso % (Auto) 0.3 (0.0-3.0) % Neut # (Auto) 6.20 (1.7-7.0) K/uL Lymph # (Auto) 0.70 L (0.90-2.90) K/uL [place] # (Auto) 0.30 (0.00-0.90) K/UL Eos # (Auto) 0.00 (0.00-0.50) K/uL Baso # (Auto) 0.02 (0.00-0.30) K/uL Abs Immat Gran (auto) 0.01 (0.00-0.30) K/uL Imm/Tot Granulo (auto) 0.1 % Sodium 140 (135-149) mmol/L Potassium 3.9 (3.6-5.1) mmol/L Chloride 105 (96-114) mmol/L Carbon Dioxide 22 (20-32) mmol/L Anion Gap 13 (7-15) mEq/L BUN 14 (5-24) mg/dL Creatinine 0.6 (0.5-1.5) mg/dL Estimated Creat Clear 154.35 Estimated GFR 124 ml/min Glucose 156 H (60-115) mg/dL Lactate 2.6 H (0.5-1.9) mmol/L Calcium 9.4 (8.4-10.6) mg/dL Total Bilirubin 0.5 (0.1-1.5) mg/dL Direct Bilirubin 0.1 (0.0-0.5) mg/dL AST 26 (12-35) U/L ALT 20 (4-50) U/L Alkaline Phosphatase 67 (40-150) U/L C-Reactive Protein < 0.5 L (0.5-1.0) mg/dL Total Protein 7.7 (6.0-8.3) g/dL Albumin 5.0 (3.3-5.0) g/dL Lipase 73 (23-300) U/L Urine Color (Yellow) Urine Appearance (Clear) Urine pH (5.0-8.5) Ur Specific [place] (1.000-1.030) Urine Protein (Negative) Urine Glucose (UA) (Negative) Urine Ketones (Negative) Urine Blood (Negative) Urine Nitrite (Negative) Urine Bilirubin (Negative) Urine Urobilinogen (0.2-1.0) Ur Leukocyte Esterase (Negative) Urine RBC (0-2) Urine WBC (0-5) Ur Squamous Epith Cells (None-Few) Urine Bacteria (None) Urine Opiates Screen (Negative) Ur Oxycodone Screen (Negative) Urine Methadone Screen (Negative) Ur Barbiturates Screen (Negative) U Tricyclic Antidepress (Negative) Ur Phencyclidine Scrn (Negative) Ur Amphetamines Screen (Negative) U Methamphetamines Scrn (Negative) U Benzodiazepines Scrn (Negative) Urine Cocaine Screen (Negative) U Marijuana (THC) Screen (Negative) Ur Drug Screen Comment Ethyl Alcohol < 0.01 L (0.01-0.03) % SARS-CoV-2 (PCR) Negative SARS-CoV-2 (Negative) Monoscreen Negative (Negative) Influenza Type A (PCR) Negative PCR FLU A (Negative) Influenza Type B (PCR) Negative PCR FLU B (Negative) RSV (PCR) Negative PCR RSV (Negative) Lab Acknowledgement Test Added 07/12/23 07/12/23 Range/Units 14:45 15:47 WBC (4.50-11.00) K/uL RBC (4.30-5.90) m/uL Hgb (13.5-17.5) gm/dL Hct (37.0-53.0) % MCV (80-100) fL MCH (26-34) pg MCHC (32-36) gm/dL RDW Coeff of Anurag (11.5-15.5) % Plt Count (140-440) K/uL Neut % (Auto) (42.0-72.0) % Lymph % (Auto) (20-44) % [place] % (Auto) (0.0-11.0) % Eos % (Auto) (0.0-7.0) % Baso % (Auto) (0.0-3.0) % Neut # (Auto) (1.7-7.0) K/uL Lymph # (Auto) (0.90-2.90) K/uL [place] # (Auto) (0.00-0.90) K/UL Eos # (Auto) (0.00-0.50) K/uL Baso # (Auto) (0.00-0.30) K/uL Abs Immat Gran (auto) (0.00-0.30) K/uL Imm/Tot Granulo (auto) % Sodium (135-149) mmol/L Potassium (3.6-5.1) mmol/L Chloride (96-114) mmol/L Carbon Dioxide (20-32) mmol/L Anion Gap (7-15) mEq/L BUN (5-24) mg/dL Creatinine (0.5-1.5) mg/dL Estimated Creat Clear Estimated GFR ml/min Glucose (60-115) mg/dL Lactate 1.2 (0.5-1.9) mmol/L Calcium (8.4-10.6) mg/dL Total Bilirubin (0.1-1.5) mg/dL Direct Bilirubin (0.0-0.5) mg/dL AST (12-35) U/L ALT (4-50) U/L Alkaline Phosphatase (40-150) U/L C-Reactive Protein (0.5-1.0) mg/dL Total Protein (6.0-8.3) g/dL Albumin (3.3-5.0) g/dL Lipase (23-300) U/L Urine Color Yellow (Yellow) Urine Appearance Clear (Clear) Urine pH 7.0 (5.0-8.5) Ur Specific [place] 1.020 (1.000-1.030) Urine Protein Negative (Negative) Urine Glucose (UA) Negative (Negative) Urine Ketones Trace A (Negative) Urine Blood Negative (Negative) Urine Nitrite Negative (Negative) Urine Bilirubin Negative (Negative) Urine Urobilinogen 0.2 (0.2-1.0) Ur Leukocyte Esterase Negative (Negative) Urine RBC 0-2 (0-2) Urine WBC 0-2 (0-5) Ur Squamous Epith Cells None (None-Few) Urine Bacteria None (None) Urine Opiates Screen Negative (Negative) Ur Oxycodone Screen Negative (Negative) Urine Methadone Screen Negative (Negative) Ur Barbiturates Screen Negative (Negative) U Tricyclic Antidepress Negative (Negative) Ur Phencyclidine Scrn Negative (Negative) Ur Amphetamines Screen Negative (Negative) U Methamphetamines Scrn Negative (Negative) U Benzodiazepines Scrn Negative (Negative) Urine Cocaine Screen Negative (Negative) U Marijuana (THC) Screen POSITIVE A (Negative) Ur Drug Screen Comment See Note Ethyl Alcohol (0.01-0.03) % SARS-CoV-2 (PCR) (Negative) Monoscreen (Negative) Influenza Type A (PCR) (Negative) Influenza Type B (PCR) (Negative) RSV (PCR) (Negative) Lab Acknowledgement Discharge Plan Discharge Clinical Impression: Gastroenteritis, Vertigo, Colitis Patient Disposition: Home, Self-Care Condition: Stable Additional Instructions: Stay well hydrated by drinking small amounts of fluids frequently throughout the day. Rest as much as you need to. Get good sleep. Okay to use medications as needed for nausea and vertigo. Both sent to the pharmacy today. Follow-up with your primary care provider if vertigo is not improving over the next several days. Prescriptions: New ondansetron HCl 4 mg tablet 4 mg PO TID PRN (Reason: nausea and vomiting) Qty: 10 0RF meclizine 25 mg tablet 25 mg PO BID PRN (Reason: dizziness) Qty: 10 0RF Follow Up/Referrals: Bruce Torres MD [Primary Care Provider] - Stand Alone Forms: [employer] Info Instructions
--- NOTE | 2023-07-12 17:11 | ED.NURSE ---
Was called into patient's room by his mother. She states that everyone agrees, we should just get out of here. I asked patient through in-patient [employer] person if he felt ready to leave or if he wanted to finish fluids. He reported he was ready for discharge. Instructions were reviewed, prescriptions were sent to [facility] in [place]; patient mentions this not being best pharmacy however mother interjects and says it will be fine. I look at patient for confirmation to this and he nods, yes it is.
== END 2023-07-12 17:04 | disposition home or self-care (01) ==
PROVIDERS: Emergency Provider Family Medicine; PCP Family Medicine
DX: K52.9 Noninfective gastroenteritis and colitis, unspecified (principal); R42 Dizziness and giddiness
CPT/HCPCS: 36415; 70450; 74177; 80048; 80076; 80306; 81001; 82077; 83605; 83690; 85025; 86140; 86308; 87086; 87631; 94761; 96374; 96375; 99284; 99285; J1200; J1790; J1885; J2405; J3360; J7030; Q9967

== ENCOUNTER 2025-03-26 07:45 | Outpatient (RCR) | payer MEDICAID, SELFPAY | END 2025-03-26 10:22 | disposition home or self-care (01) | PROVIDERS: PCP Family Medicine; Visit Provider Family Medicine | DX: S16.1XXD Strain of muscle, fascia and tendon at neck level, subsequent encounter (principal); Z51.89 Encounter for other specified aftercare | CPT/HCPCS: 97110; 97140; 97162 ==